=== PATIENT | female | born 1965 | race Caucasian/White ===

== ENCOUNTER 2018-06-07 04:53 | Inpatient (IN) ==
[2018-05-28 11:17] LABS: Basophils # (Auto) 0 K/mcL (0.0-0.3); Basophils % (Auto) 0.4 % (0.0-2.0); Eosinophils # (Auto) 0 K/mcL (0.0-0.7); Eosinophils % (Auto) 0.6 % (0.0-7.0); Granulocytes % (Auto) 57.9 % (38.0-78.0); Lymphocytes % (Auto) 34.5 % (15.5-49.0); Mean Cell Volume 87.9 fL (80.0-100.0); Mean Corpuscular HGB Conc 32.6 g/dL (31.0-36.0); Monocytes # (Auto) 0.4 K/mcL (0.1-0.9); Monocytes % (Auto) 6.6 % (1.0-12.0); Platelet Count 279 K/mcL (140-440); RBC 4.81 M/mcL (4.00-5.20); Red Cell Distribution Width 13.9 % (11.5-14.5)
[2018-05-28 11:20] LABS: Blood Urea Nitrogen 23 mg/dl (6-20)
[2018-05-28 12:15] LABS: Appearance,Urine CLEAR; Bilirubin,Urine NEG (NEG); Color,Urine YELLOW; Glucose,Urine (UA) NEGATIVE (NEG); Leukocyte Esterase,Urine NEG /uL (NEG); Protein,Urine NEG (NEG); Specific Gravity,Urine 1.006 (1.000-1.035); Urine Blood NEG mg/dL (<0.03); Urobilinogen,Urine NEG (NEG)
[2018-06-07] MEDS ORDERED: CELECOXIB 200 MG CAPSULE PO SCH (07:00)
[2018-06-07] MEDS ORDERED: 0.9 % SODIUM CHLORIDE 9 ML, KETOROLAC 30 MG, ROPIVACAINE HCL/PF 49.5 ML, EPINEPHrine 0.... IJ SCH (07:00)
[2018-06-07] MEDS ORDERED: PREGABALIN 75 MG CAPSULE PO SCH (07:00)
[2018-06-07] MEDS ORDERED: ceFAZolin 1 GM VIAL IV SCH (07:00)
[2018-06-07] MEDS ORDERED: ACETAMINOPHEN 500 MG TABLET PO SCH (07:00)
[2018-06-07] MEDS ORDERED: GENTAMICIN SULFATE 800 MG/20 ML VIAL IR ONE (07:20)
[2018-06-07] MEDS ORDERED: PROMETHAZINE 25 MG/ML VIAL IV PRN (09:28)
[2018-06-07] MEDS ORDERED: HYDROmorphone 2 MG/ML VIAL IV PRN (09:28)
[2018-06-07] MEDS ORDERED: ePHEDrine 50 MG/ML AMPUL IV PRN (09:28)
[2018-06-07] MEDS ORDERED: IPRATROPIUM/ALBUTEROL 3 ML AMPUL.NEB NEB PRN (09:28)
[2018-06-07] MEDS ORDERED: METHOCARBAMOL 1,000 MG/10 ML VIAL IV PRN (09:28)
[2018-06-07] MEDS ORDERED: diphenhydrAMINE 50 MG/ML VIAL IV PRN (09:28)
[2018-06-07] MEDS ORDERED: PROMETHAZINE 25 MG/ML VIAL IM PRN (09:28)
[2018-06-07] MEDS ORDERED: ONDANSETRON 4 MG/2 ML VIAL IV PRN ×2 (09:28→10:06)
[2018-06-07] MEDS ORDERED: METOPROLOL TARTRATE 5 MG/5 ML VIAL IV PRN (09:28)
[2018-06-07] MEDS ORDERED: ATROPINE SULFATE 0.4 MG/ML VIAL IV PRN (09:28)
[2018-06-07] MEDS ORDERED: MEPERIDINE 50 MG/ML INJECTION IM PRN (09:28)
[2018-06-07] MEDS ORDERED: NALOXONE HCL 0.4 MG/ML VIAL IV PRN (09:28)
[2018-06-07] MEDS ORDERED: FLUMAZENIL 0.1 MG/ML ML IV PRN (09:28)
[2018-06-07] MEDS ORDERED: LACTATED RINGERS 1,000 ML IV SCH (09:30)
[2018-06-07] MEDS ORDERED: POLYETHYLENE GLYCOL 3350 17 GM PACKET PO PRN (10:06)
[2018-06-07] MEDS ORDERED: BISACODYL 10 MG SUPP.RECT PR PRN (10:06)
[2018-06-07] MEDS ORDERED: BENZOCAINE/MENTHOL 1 LOZENGE PO PRN (10:06)
[2018-06-07] MEDS ORDERED: oxyCODONE/APAP 5/325MG TABLET PO PRN (10:06)
[2018-06-07] MEDS ORDERED: ACETAMINOPHEN 325 MG TABLET PO PRN (10:06)
[2018-06-07] MEDS ORDERED: TRANEXAMIC ACID 1,000 MG/10 ML VIAL IV SCH (10:06)
[2018-06-07] MEDS ORDERED: FLEETS ADULT ENEMA PR PRN (10:06)
[2018-06-07] MEDS ORDERED: MAGNESIUM HYDROXIDE 30 ML ORAL.SUSP PO PRN (10:06)
--- NOTE | 2018-06-07 10:06 | Brief Operative Note ---
Date of procedure: 06/07/18 Pre-op diagnosis: right knee loose tka Post-op diagnosis: same Procedure: right tka revision Grafts/Implants: Yes Anesthesia: GETA Complications: none Surgeon: Claude Cohen Oxygraph Operator: Satnam Can Estimated blood loss (cc): 100 Tourniquet Time (Minutes): 90 Specimens Removed/Pathology: none sent Condition: stable Disposition: PACU
[2018-06-07] MEDS ORDERED: 0.45 % SODIUM CHLORIDE 1,000 ML IV SCH (10:15)
[2018-06-07] MEDS: fentaNYL 100 MCG/2 ML VIAL IV PRN ×3 (10:37→11:16)
--- NOTE | 2018-06-07 11:23 | Operative Note ---
DATE OF OPERATION: 06/07/2018 PREOPERATIVE DIAGNOSIS: Right mechanically loosened total knee arthroplasty. POSTOPERATIVE DIAGNOSIS: Right mechanically loosened total knee arthroplasty. PROCEDURE: Right total knee arthroplasty. SURGEON: Claude Cohen M.D. LUBRICATING MACHINE TENDER: Satnam Can PA-C. ANESTHESIA: General LMA anesthesia. COMPLICATIONS: None. IMPLANTS PLACED: Turner components, size 4 tibial baseplate, size 4 femur with a +5 augment both on the tibia and the femur. DESCRIPTION OF PROCEDURE: The patient was brought to the operating room and put to sleep with general LMA anesthesia. Once asleep, the patient had the right leg sterilely prepped and draped in the usual sterile fashion. A midline incision was made and a midvastus approach performed. Once done, we then evaluated all the structures of the knee. We opened the joint and took out the synovium in the superior pouch. This was sent for high-powered field and microscopic evaluation. This showed less than 1 white blood cell per high power field. Once we knew this, we proceeded with a total knee. We removed the femoral component first after removing the poly liner. The femoral component removed fairly easily. There was a bony ridge that had grown up over it. The component was slightly lateralized and was removed without difficulty. It was discovered there was a membrane underneath the femoral component. About two-thirds of the surface was mechanically impregnated with the synovial lining. Medially, there was some bone attached on the posterior medial on the femoral condyle. There was no bone attached on the medial side. We then prepared the tibia. The tibial component was then tapped on superiorly, and it was easily removed. There was some cement attached on the anterior to anterolateral portion, but less than one-third of the surface. We then placed the intramedullary guide sudarshan on the tibia, made our cut at 5 mm below the cemented surface. We then removed the bony fragments and osteophytes. We lateralized the implant and positioned this and punched this into place. This was reamed up to the size 14 stem. The femoral component was then prepared. We reamed up to a size 16. A size 4 femur was used. We lateralized this 8 mm to align her anatomy perfectly. We reestablished her joint line using the epicondylar axis. Once done, we placed a +5 augment on the femur, and this was then trialed with a 16 poly to balance the knee. This had full range of motion and it worked very nicely. These components fit perfectly. We then cemented into place the tibial component, as well as the femoral component, and then a 16 poly with a posterior stabilized design was placed. The patient tolerated this well without difficulty. We kept the knee at 45 degrees until cement was dry. We closed the midvastus approach with #1 Stratafix x3 stitches and then the skin was closed with Stratafix and adhesive closure. The patient tolerated this well without complication. OMAR:rita Job ID: [id number] Doc ID: [id number] Claude Cohen MD
--- NOTE | 2018-06-07 11:36 | XRay Report ---
CLINICAL INFORMATION: Post-Op Total Knee COMPARISON: 05/14/2018 FINDINGS: Longstem total knee revision is anatomically aligned. No osseous abnormality. Soft tissue swelling gas seen as expected. IMPRESSION: Negative Interpreted and Authenticated by: Miguel Banks 06/07/18
[2018-06-07] MEDS: HYDROmorphone 2 MG/ML VIAL IV PRN ×3 (11:58→20:09)
[2018-06-07] MEDS ORDERED: KETOROLAC 15 MG/ML VIAL IV SCH (12:00)
[2018-06-07] MEDS: KETOROLAC 30 MG/ML VIAL IV SCH ×3 (12:05→23:06)
[2018-06-07] MEDS: 0.9 % SODIUM CHLORIDE 10 ML SYRINGE IV SCH ×2 (14:58→23:05)
[2018-06-07] MEDS ORDERED: PROPOFOL 200 MG/20 ML VIAL IV ONE (15:11)
[2018-06-07] MEDS ORDERED: DEXAMETHASONE 10 MG/ML VIAL IV ONE (15:11)
[2018-06-07] MEDS ORDERED: MIDAZOLAM 5 MG/5 ML VIAL IV ONE (15:11)
[2018-06-07] MEDS ORDERED: LIDOCAINE HCL/PF 100 MG/5 ML SYRINGE IV ONE (15:11)
[2018-06-07] MEDS ORDERED: ROPIVACAINE HCL/PF 20 ML VIAL IJ ONE (15:11)
[2018-06-07] MEDS ORDERED: GLYCOPYRROLATE 0.2 MG/ML VIAL IV ONE (15:11)
[2018-06-07] MEDS ORDERED: fentaNYL 250 MCG/5 ML VIAL IV ONE (15:11)
[2018-06-07] MEDS ORDERED: TRANEXAMIC ACID 1,000 MG/10 ML VIAL IV ONE (15:11)
[2018-06-07] MEDS ORDERED: ONDANSETRON 4 MG/2 ML VIAL IV ONE (15:11)
[2018-06-07] MEDS: ceFAZolin 1 GM VIAL IV SCH ×2 (15:27→23:05)
[2018-06-07] MEDS: HYDROmorphone 2 MG TABLET PO PRN ×2 (15:28→17:21)
[2018-06-07] MEDS: DOCUSATE SODIUM 100 MG CAPSULE PO SCH (20:08)
[2018-06-07] MEDS: ASPIRIN 325 MG ENTERIC COATED TABLET PO SCH (20:08)
[2018-06-07] MEDS: SENNOSIDES 1 TABLET PO SCH (20:08)
[2018-06-07] MEDS: TEMAZEPAM 15 MG CAPSULE PO PRN (20:08)
[2018-06-08] MEDS: HYDROmorphone 2 MG TABLET PO PRN ×6 (03:26→22:27)
[2018-06-08] MEDS: 0.9 % SODIUM CHLORIDE 10 ML SYRINGE IV SCH ×2 (04:57→21:19)
[2018-06-08] MEDS: KETOROLAC 30 MG/ML VIAL IV SCH ×3 (04:57→21:18)
[2018-06-08] MEDS: LEVOTHYROXINE 88 MCG TABLET PO SCH (07:23)
--- NOTE | 2018-06-08 07:35 | Orthopedic Progress Note ---
Subjective Patient information: Note initiated : 06/08/18 at 7:34 am Service Date, if different from initiated Date: [] Patient: Tara Mahajan 52 y/o F admitted on 06/07/18 for Right Total Knee Revision. Chief Complaint: [Pt is stable this morning on post operative day 1 without any significant concerns or complaints. Patients vital signs have remained stable. Patients dressing is dry and is grossly intact from a neurovascular and motor standpoint. Patients 10 point ROS is otherwise negative. ] Objective Vital signs: Vital Signs Temp Pulse Pulse Resp BP Pulse Ox 06/08/18 03:29 95 06/08/18 03:28 98.4 F 72 14 92/59 95 06/08/18 00:53 72 93/57 91 06/07/18 23:21 91 06/07/18 23:07 98.4 F 73 14 83/56 91 06/07/18 19:24 97.7 F 90 12 97/56 91 06/07/18 17:32 96 06/07/18 15:37 98.4 F 16 93/63 95 06/07/18 14:06 96 06/07/18 13:42 95/67 98 06/07/18 13:11 119/78 98 06/07/18 12:54 94 06/07/18 12:41 107/71 96 06/07/18 12:27 109/73 99 06/07/18 12:11 113/72 99 06/07/18 11:56 111/71 97 06/07/18 11:42 97.7 F 16 116/70 97 06/07/18 11:25 97.7 F 66 12 107/65 100 06/07/18 11:10 97.7 F 73 14 113/68 98 06/07/18 10:55 97.4 F 72 14 117/65 93 06/07/18 10:40 98.0 F 81 14 115/68 98 06/07/18 10:34 88 14 120/74 100 06/07/18 10:30 90 17 126/74 100 06/07/18 10:25 97.3 F 90 17 117/71 100 Intake and Output 06/07/18 06/08/18 06/08/18 21:59 05:59 13:59 Intake Total 2118 250 Output Total 1300 350 Balance 818 -100 Intake: IV 748 Sodium Chloride 0.45% 1,000 ml 748 @ 100 mls/hr IV .Q10H [facility] Rx#: [id number] Oral 1370 250 Output: Void Amount 1300 350 Other: Meal Dinner Percent of Meal Consumed 50% Feeding Ability Independent Urine Color Bright Yellow Weight 226 lb Intake & Output: Intake & Output 06/07/18 06/08/18 06/08/18 21:59 05:59 13:59 Intake Total 2118 250 Output Total 1300 350 Balance 818 -100 Weight 226 lb Intake: IV 748 Sodium Chloride 0.45% 1,000 ml 748 @ 100 mls/hr IV .Q10H [facility] Rx#: [id number] Oral 1370 250 Output: Void Amount 1300 350 Other: Meal Dinner Percent of Meal Consumed 50% Feeding Ability Independent Urine Color Bright Yellow Incision: Yes healing Dressing: Yes clean Weight bearing status: full Neurological exam IM: Yes motor sensory intact, Yes neurovascular intact Extremities exam IM: Yes Foot pink and warm, Yes neurovascular intact - Labs CBC & BMP: 06/08/18 05:26 05/28/18 08:34 Labs: 06/08/18 05/28/18 05:26 08:34 Hgb 13.8 Hct 31.9 L 42.3 Assessment and Plan (1) History of revision of total knee arthroplasty The patient has been educated regarding dressing care, Physical Therapy recommendations, home exercises, restrictions, and follow up appointments. The patient has had all necessary DME prescribed. The patient has remained relatively stable during their hospital course. Leave Dermabond patch intact until followup Status: Acute
--- NOTE | 2018-06-08 07:37 | Discharge Summary ---
Ortho Discharge - TKA - Patient Instructions Diet: Regular Diet Activity: activity as tolerated, weight bearing as tolerated Total Knee Protocol: For Total Knee: Start ROM MARI with stationary bike or rocking chair. Work on gaining full extension of knee. Posterior dislocation precautions provided. Hip abductor strengthening and gait training instructions provided. Apply Cryocuff as instructed. Dressing Care: May shower in 2 days, Aquacel Ag - leave on for 5 days - Problem Maintenance (1) History of revision of total knee arthroplasty Status: Acute - Follow Up Plan Follow Up Appointments: Satnam Can PA-C [Physician Hospice Admitting Clerk] - 06/22/18 8:10 am Disposition: Home, Self-Care Prognosis: Good Rehab Potential: Good I certify that the patient requires SNF services: No Overall status at discharge: patient is progressing back to baseline - Orders For Discharge Prescriptions: Aspirin [Ecotrin] 325 mg PO BID #60 tab.ec Docusate Sodium [Colace] 100 mg PO BID #60 capsule
[2018-06-08] MEDS: VITAMIN D3 1,000 UNIT TABLET PO SCH (08:58)
[2018-06-08] MEDS: ESTRADIOL 1 MG TABLET PO SCH (08:58)
[2018-06-08] MEDS: ASPIRIN 325 MG ENTERIC COATED TABLET PO SCH ×2 (08:59→20:17)
[2018-06-08] MEDS: MULTIVIT,THER IRON,CA,FA & MIN 1 TABLET PO SCH (08:59)
[2018-06-08] MEDS: DOCUSATE SODIUM 100 MG CAPSULE PO SCH ×2 (09:01→20:17)
--- NOTE | 2018-06-08 12:12 | Surgical Pathology Report ---
HISTOLOGY SPECIMEN MICROSCOPIC DIAGNOSIS SOFT TISSUE, RIGHT KNEE, SUPERIOR POUCH, EXCISION: -- SYNOVIUM AND FIBROTIC SOFT TISSUE WITH CHRONIC INFLAMMATION. -- NO SIGNIFICANT NEUTROPHILIC INFLAMMATION IDENTIFIED (LESS THAN NEUTROPHIL/hpf). (DMT:sln) INTRAOPERATIVE CONSULTATION FROZEN SECTION DIAGNOSIS ([facility] [place], [place]) FSA - SOFT TISSUE, RIGHT KNEE, SUPERIOR POUCH, EXCISION: -- LESS THAN ONE NEUTROPHIL/hpf. (DMT:sln) GROSS DESCRIPTION Received fresh for frozen section consultation labeled superior pouch right knee, is a 2.5 x 1.5 x 0.7 cm freeman-pink soft tissue fragment. The fragment is serially sectioned, entirely submitted for frozen section consultation and resubmitted as FSA. (DMT:sln) Electronically Signed by: Isreal Justin M.D.
[2018-06-08] MEDS: SENNOSIDES 1 TABLET PO SCH (20:17)
[2018-06-08] MEDS: TEMAZEPAM 15 MG CAPSULE PO PRN (21:18)
[2018-06-09] MEDS: KETOROLAC 30 MG/ML VIAL IV SCH ×2 (01:24→06:48)
[2018-06-09] MEDS: 0.9 % SODIUM CHLORIDE 10 ML SYRINGE IV SCH ×2 (01:24→06:49)
[2018-06-09] MEDS: HYDROmorphone 2 MG TABLET PO PRN (05:17)
[2018-06-09] MEDS: LEVOTHYROXINE 88 MCG TABLET PO SCH (06:49)
[2018-06-09] MEDS: VITAMIN D3 1,000 UNIT TABLET PO SCH (08:39)
[2018-06-09] MEDS: DOCUSATE SODIUM 100 MG CAPSULE PO SCH (08:39)
[2018-06-09] MEDS: ESTRADIOL 1 MG TABLET PO SCH (08:39)
[2018-06-09] MEDS: ASPIRIN 325 MG ENTERIC COATED TABLET PO SCH (08:40)
[2018-06-09] MEDS: MULTIVIT,THER IRON,CA,FA & MIN 1 TABLET PO SCH (08:40)
== END 2018-06-09 09:58 | disposition home or self-care (01) | DRG 468 ==
LOC: MEDSUR 04:53
PROVIDERS: ADMIT Orthopaedic Surgery; ATTEND Orthopaedic Surgery

== ENCOUNTER 2020-06-25 07:54 | Inpatient (IN) ==
[2020-06-18 18:29] LABS: Appearance,Urine CLEAR (Clear); Bilirubin,Urine Negative (Negative); Color,Urine YELLOW; Culture Indicated,Urine No; Glucose,Urine (UA) Negative (Negative); Ketones,Urine Negative (Negative); Leukocyte Esterase,Urine Negative /ug (Negative); Nitrate,Urine Negative (Negative); Protein,Urine Negative (Negative); Specific Gravity,Urine 1.026 (1.000-1.035); Urine Blood Negative (Negative)
[2020-06-18 20:18] LABS: Basophils # (Auto) 0.03 K/mcL (0.00-0.20); Basophils % (Auto) 0.5 % (0.0-2.0); Eosinophils # (Auto) 0.12 K/mcL (0.00-0.70); Hematocrit 37.9 % (36.0-48.0); Hemoglobin 11.9 g/dL (12.0-15.0); Lymphocytes # (Auto) 1.86 K/mcL (1.50-4.80); Lymphocytes % (Auto) 31.2 % (15.0-49.0); Mean Cell Volume 90.2 fL (80.0-100.0); Mean Corpuscular HGB Conc 31.4 g/dL (31.0-36.0); Mean Platelet Volume 10.4 fL (7.4-10.4); Monocytes % (Auto) 6.7 % (1.0-12.0); Neutrophils % (Auto) 59.6 % (38.0-78.0); Platelet Count 280 K/mcL (140-440); Red Cell Distribution Width 14.1 % (11.5-14.5)
[2020-06-18 21:00] LABS: Blood Urea Nitrogen 19 mg/dL (6-20); Calcium 9.2 mg/dL (8.6-10.4); Carbon Dioxide 27 mmol/L (22-30); Chloride 105 mmol/L (96-108); Glomerular Filtration Rate 98; Glucose 81 mg/dL (70-105)
[~2020-06-25 07:54] MED LIST: 0.9 % SODIUM CHLORIDE 9 ML, KETOROLAC 30 MG, ROPIVACAINE HCL/PF 49.5 ML, EPINEPHrine 0.... IJ SCH; ACETAMINOPHEN 500 MG TABLET PO SCH; CELECOXIB 200 MG CAPSULE PO SCH; PREGABALIN 75 MG CAPSULE PO SCH; ceFAZolin 2 GM in DEXTROSE 5% IN WATER 50 ML IV SCH
[2020-06-25] MEDS ORDERED: SCOPOLAMINE 1 PATCH PATCH TOPICAL PRN (08:00)
[2020-06-25] MEDS ORDERED: IPRATROPIUM/ALBUTEROL 3 ML AMPUL.NEB NEB PRN ×2 (08:00→12:02)
[2020-06-25] MEDS ORDERED: GENTAMICIN SULFATE 800 MG/20 ML VIAL IR ONE (09:57)
[2020-06-25] MEDS ORDERED: ePHEDrine 50 MG/ML AMPUL IV ONE (10:50)
[2020-06-25] MEDS ORDERED: LIDOCAINE HCL/PF 100 MG/5 ML SYRINGE IV ONE (10:50)
[2020-06-25] MEDS ORDERED: ROPIVACAINE HCL/PF 20 ML VIAL IJ ONE (10:50)
[2020-06-25] MEDS ORDERED: KETAMINE 100 MG/ML ML ONE (10:50)
[2020-06-25] MEDS ORDERED: fentaNYL 100 MCG/2 ML VIAL IV ONE (10:50)
[2020-06-25] MEDS ORDERED: MAGNESIUM SULFATE 4 GM/100 ML BAG IV ONE (10:50)
[2020-06-25] MEDS ORDERED: DEXAMETHASONE 10 MG/ML VIAL ONE (10:50)
[2020-06-25] MEDS ORDERED: PROPOFOL 200 MG/20 ML VIAL IV ONE (10:50)
[2020-06-25] MEDS ORDERED: ONDANSETRON 4 MG/2 ML VIAL ONE (10:50)
[2020-06-25] MEDS ORDERED: diphenhydrAMINE 50 MG/ML VIAL IV PRN (12:02)
[2020-06-25] MEDS ORDERED: NALOXONE HCL 0.4 MG/ML VIAL IV PRN (12:02)
[2020-06-25] MEDS ORDERED: LACTATED RINGERS 250 ML IV PRN (12:02)
[2020-06-25] MEDS ORDERED: PROMETHAZINE 25 MG/ML VIAL IV PRN (12:02)
[2020-06-25] MEDS ORDERED: HYDROmorphone 0.5 MG/0.5 ML SYRINGE IV PRN (12:02)
[2020-06-25] MEDS ORDERED: MEPERIDINE 25 MG/ML SYRINGE IV PRN (12:02)
[2020-06-25] MEDS ORDERED: ONDANSETRON 4 MG/2 ML VIAL IV PRN ×2 (12:02→12:19)
[2020-06-25] MEDS ORDERED: LACTATED RINGERS 1,000 ML IV SCH (12:15)
--- NOTE | 2020-06-25 12:18 | Brief Operative Note ---
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
[2020-06-25] MEDS ORDERED: ACETAMINOPHEN 325 MG TABLET PO PRN (12:19)
[2020-06-25] MEDS ORDERED: HYDROcodone/APAP 10/325MG TABLET PO PRN (12:19)
[2020-06-25] MEDS ORDERED: BENZOCAINE/MENTHOL 1 LOZENGE PO PRN (12:19)
[2020-06-25] MEDS ORDERED: TRANEXAMIC ACID 1,000 MG/10 ML VIAL IV ONE (12:19)
[2020-06-25] MEDS ORDERED: POLYETHYLENE GLYCOL 3350 17 GM PACKET PO PRN (12:19)
[2020-06-25] MEDS ORDERED: BISACODYL 10 MG SUPP.RECT PR PRN (12:19)
[2020-06-25] MEDS ORDERED: MAGNESIUM HYDROXIDE 30 ML ORAL.SUSP PO PRN (12:19)
[2020-06-25] MEDS ORDERED: FLEETS ADULT ENEMA PR PRN (12:19)
[2020-06-25] MEDS ORDERED: TEMAZEPAM 15 MG CAPSULE PO PRN (12:19)
--- NOTE | 2020-06-25 12:21 | Discharge Plan ---
Discharge Instructions - TKA Patient Instructions Total Knee Protocol: For Total Knee: Start ROM MARI with stationary bike or rocking chair. Work on gaining full extension of knee. Posterior dislocation precautions provided. Hip abductor strengthening and gait training instructions provided. Apply Cryocuff as instructed. Discharge Plan Patient/Caregiver Discharge Instructions Activity: ambulate only with your walker and as per physical therapy Diet: Regular Diet Prescriptions: New aspirin [Ecotrin] 325 mg tablet,delayed release (DR/EC) 325 mg PO BID Qty: 60 RF: 0 docusate sodium 100 mg capsule 100 mg PO BID Qty: 60 RF: 0 hydromorphone 4 mg tablet 4 mg PO .q4-6h MDD 8 PRN (Reason: pain) Qty: 75 RF: 0 No Action multivitamin 1 EACH tablet 1 tab PO DAILY RF: 0 cholecalciferol (vitamin D3) 1,000 UNIT tablet 2,000 unit PO DAILY RF: 0 levothyroxine 75 mcg Tablet 75 mcg PO QDAY RF: 0 biotin 1 mg Tablet 1 mg PO QDAY RF: 0 estradiol 1 mg tablet 2 mg PO DAILY RF: 0 Other Ambulatory Orders: CPM Discharge Order (ONCE) Location: None Selected Ordered By: Satnam Can Physical Therapy DC - TKA (Routine) Location: None Selected Ordered By: Satnam Can Toilet Riser Discharge Order (ONCE) Location: None Selected Ordered By: Satnam Can Walker (ONCE) Location: None Selected Ordered By: Satnam Can Follow Up Plan Follow up with: Satnam Can PA-C [Physician Radio Time Sales Supervisor] - Patient Disposition: Home, Self-Care Prognosis: Good Rehab Potential: Good I certify that the patient requires SNF services: No Overall status at discharge: patient is progressing back to baseline Discharge Orders: Discharge Order (Routine); Ordered 06/26/20 Ordered By: Satnam Can
[2020-06-25] MEDS: fentaNYL 100 MCG/2 ML VIAL IV PRN ×4 (12:32→13:04)
[2020-06-25] MEDS ORDERED: KETOROLAC 30 MG/ML VIAL ONE (12:43)
--- NOTE | 2020-06-25 13:01 | Operative Note ---
DATE OF OPERATION: 06/25/2020 PREOPERATIVE DIAGNOSIS: Right knee instability with patellofemoral pain. POSTOPERATIVE DIAGNOSES: Right knee instability with patellofemoral pain. PROCEDURE: Right total knee revision to a constrained knee with resurfacing the patella and changing the poly liner from a 16 to a 19. SURGEON: Claude Cohen M.D. HANDICAPPED TEACHER: Satnam Can PA-C. The PA's assistance was required for the safe and efficient completion of the entire case. This provider's expertise and technical skill were required throughout the case. The PA assisted with preoperative coordination, intraoperative retraction, wound closure, dressing and splint application, as well as postoperative documentation and care coordination. COMPLICATIONS: None. TOURNIQUET TIME: 45 minutes at 250 pounds of pressure. DESCRIPTION OF PROCEDURE: The patient was brought to the operating room and put to sleep with general LMA anesthesia. Preoperative antibiotics and tranexamic had been given. Once asleep, the patient had the right leg sterilely prepped and draped in the usual sterile fashion. Ioban was placed over the skin and a midline incision over the prior scar had been made. We dissected through the anterior medial capsule and then inspected the joint. There was some chronic hemosiderin staining of the joint. The knee had 3 mm of play with valgus stress. The patella seemed to track well. At this point we irrigated thoroughly, changing the poly liner from a size 16 to a 19 fully-constrained liner with resurfacing of the patella from a 36 patella. This was a 10 mm thick patella. We removed the old patella, which was slightly thinner. We irrigated thoroughly and then trialed all the components. This fit very nicely. We irrigated thoroughly. The patella did engage the poly at approximately 100 to 120 degrees. We cemented into place the new patella, 36 mm patella. We changed the liner from a 16 to a 19 and went to a constrained post. Once in, we irrigated thoroughly, deflated the tourniquet, and then closed the midvastus approach with #1 Stratafix. We performed a synovectomy of the knee as well as sending some of this tissue for permanent stains. Blood loss was about 20 mL. No complications. [facility]:rita Job ID: [id number] Doc ID: [id number] Claude Cohen MD
--- NOTE | 2020-06-25 13:06 | XRay Report ---
CLINICAL INFORMATION: Post-Op Total Knee COMPARISON: None. FINDINGS: Longstem knee prostheses is anatomically aligned. No osseous abnormality. Articular gas and soft tissue tissue swelling as expected. IMPRESSION: Wall stents in the prostheses in anatomic alignment Interpreted and Authenticated by: Miguel Banks 06/25/20
[2020-06-25] MEDS: 0.9 % SODIUM CHLORIDE 10 ML SYRINGE IV SCH ×2 (13:39→22:11)
[2020-06-25] MEDS: 0.45 % SODIUM CHLORIDE 1,000 ML IV SCH ×2 (13:49→22:25)
[2020-06-25] MEDS: HYDROmorphone 1 MG/ML SYRINGE IV PRN ×2 (15:09→20:34)
[2020-06-25] MEDS: KETOROLAC 15 MG/ML VIAL IV SCH ×2 (17:34→23:43)
[2020-06-25] MEDS: HYDROmorphone 2 MG TABLET PO PRN ×2 (17:35→23:42)
[2020-06-25] MEDS: ceFAZolin 1 GM VIAL IV SCH (18:26)
[2020-06-25] MEDS: ASPIRIN 325 MG ENTERIC COATED TABLET PO SCH (20:33)
[2020-06-25] MEDS: DOCUSATE SODIUM 100 MG CAPSULE PO SCH (20:33)
[2020-06-25] MEDS ORDERED: SENNOSIDES 1 TABLET PO SCH (21:00)
[2020-06-26] MEDS: ceFAZolin 1 GM VIAL IV SCH (02:53)
[2020-06-26] MEDS: HYDROmorphone 2 MG TABLET PO PRN ×2 (03:59→09:54)
[2020-06-26] MEDS: KETOROLAC 15 MG/ML VIAL IV SCH (05:18)
[2020-06-26] MEDS: 0.9 % SODIUM CHLORIDE 10 ML SYRINGE IV SCH (05:18)
[2020-06-26] MEDS ORDERED: LEVOTHYROXINE 75 MCG TABLET PO SCH (07:30)
--- NOTE | 2020-06-26 07:41 | Orthopedic Progress Note ---
SUBJECTIVE Subjective Patient information: Note initiated : 06/26/20 at 7:40 am Service Date, if different from initiated Date: [] Patient: Tara Mahajan 54 y/o F admitted on 06/25/20 for Right Total Knee Revision of Patella and Liner . Chief Complaint: [Pt is stable this morning on post operative day without any significant concerns or complaints. Patients vital signs have remained stable. Patients dressing is dry and is grossly intact from a neurovascular and motor standpoint. Patients 10 point ROS is otherwise negative. ] Constitutional Vitals: Vital Signs Temp Pulse Resp BP Pulse Ox 98.6 F 74 20 124/73 97 06/26/20 06:46 06/26/20 06:46 06/26/20 06:46 06/26/20 06:46 06/26/20 06:46 Period Temp Pulse Resp BP Sys/Magdaleno Pulse Ox Last 24 Hr 97 F-98.6 F 57-98 10-20 94-133/61-83 92-100 Intake and Output 06/25/20 06/26/20 06/26/20 21:59 05:59 13:59 Intake Total 480 1600 Output Total 2200 Balance -1720 1600 Weight 241 lb 3 oz Intake & Output: Intake & Output 06/25/20 06/26/20 06/26/20 21:59 05:59 13:59 Intake Total 480 1600 Output Total 2200 Balance -1720 1600 Weight 241 lb 3 oz Intake: IV 1000 Sodium Chloride 0.45% 1,000 ml 1000 @ 100 mls/hr IV .Q10H [facility] Rx#: [id number] Oral 480 600 Output: Void Amount 2200 Other: Meal Dinner Percent of Meal Consumed 100% Feeding Ability Independent Urine Appearance Clear Clear Urine Color Pale Pale Urine Odor Normal Normal # Voids 1 Extremities Exam Extremities exam: Present normal capillary refill, normal inspection, Foot pink and warm and neurovascular intact OBJ DATA Labs CBC & Chem 7: 06/26/20 05:35 06/18/20 16:43 Labs: Abnormal Lab Results 06/26/20 05:35 Hct 34.5 L Meds: Medications Acetaminophen (Tylenol) 650 mg PO Q6HP PRN; Protocol PRN Reason: Per Pain Protocol/Fever > 101 Aspirin (Ecotrin) 325 mg PO BID [facility] Last Admin: 06/25/20 20:33 Dose: 325 mg Documented by: Bisacodyl (Dulcolax) 10 mg [place] Q2-3DAYS PRN PRN Reason: Constipation Docusate Sodium (Colace) 100 mg PO BID [facility] Last Admin: 06/25/20 20:33 Dose: 100 mg Documented by: Estradiol (Estrace) 2 mg PO DAILY [facility] Hydromorphone HCl (Dilaudid) 4 mg PO Q4HP PRN; Protocol PRN Reason: Per Pain Protocol Last Admin: 06/26/20 03:59 Dose: 4 mg Documented by: Hydromorphone HCl (Dilaudid) 0 mg IV Q2HP PRN; Protocol PRN Reason: Per Pain Protocol Last Admin: 06/25/20 20:34 Dose: 1 mg Documented by: Sodium Chloride (Sodium Chloride 0.45%) 1,000 mls @ 100 mls/hr IV .Q10H [facility] Last Admin: 06/25/20 22:25 Dose: Not Given Documented by: Iron Carb/Multivit/Braxton/Folic Acid (Multivitamin W/Minerals) 1 tab PO DAILY [facility] Ketorolac Tromethamine (Toradol) 15 mg IV Q6 [facility] Stop: 06/27/20 12:01 Last Admin: 06/26/20 05:18 Dose: 15 mg Documented by: Levothyroxine Sodium (Synthroid) 75 mcg PO QAMAC [facility] Last Admin: 06/26/20 07:03 Dose: 75 mcg Documented by: Magnesium Hydroxide (Milk Of Magnesia) 30 ml PO BIDP PRN PRN Reason: Constipation Ondansetron HCl (Zofran) 4 mg IV Q4HP PRN PRN Reason: Nausea And Vomiting Polyethylene Glycol (Miralax) 17 gm PO DAILYP PRN PRN Reason: Constipation Senna (Senokot) 2 tab PO HS [facility] Last Admin: 06/25/20 20:33 Dose: 2 tab Documented by: Sodium Biphosphate/Sodium Phosphate (Fleets Adult) 1 dose [place] Q3-4DAYS PRN PRN Reason: Constipation Sodium Chloride (Saline Flush) 10 ml IV Q8 [facility] Last Admin: 06/26/20 05:18 Dose: 10 ml Documented by: Temazepam (Restoril) 15 mg PO HSP PRN PRN Reason: Insomnia Throat Lozenges (Cepacol) 1 lozenge PO PRN PRN PRN Reason: Sore Throat Vitamin D (Vitamin D3) 2,000 unit PO DAILY [facility] A/P Narrative A/P Narrative: The patient has been educated regarding dressing care, Physical Therapy recommendations, home exercises, restrictions, and follow up appointments. The patient has had all necessary DME prescribed. The patient has remained relatively stable during their hospital course. Pt has progressed quicker than expected and meets the criteria for early discharge per Physicial Therapy and our evaluation. Time Spent With Patient Time: Total time spent is greater than 50% in coordination of care (as documented) at patient's floor/unit and/or counseling patient: Total time spent with greater than 50% in coordination of care (as documented) at patient's floor/unit and/or counseling patient:: less than 15 minutes
[2020-06-26] MEDS: 0.45 % SODIUM CHLORIDE 1,000 ML IV SCH (07:44)
[2020-06-26] MEDS ORDERED: ESTRADIOL 1 MG TABLET PO SCH (09:00)
[2020-06-26] MEDS ORDERED: MULTIVIT,THER IRON,CA,FA & MIN 1 TABLET PO SCH (09:00)
[2020-06-26] MEDS ORDERED: BIOTIN 1 MG PO SCH (09:00)
[2020-06-26] MEDS ORDERED: VITAMIN D3 1,000 UNIT TABLET PO SCH (09:00)
[2020-06-26] MEDS: DOCUSATE SODIUM 100 MG CAPSULE PO SCH (09:11)
[2020-06-26] MEDS: ASPIRIN 325 MG ENTERIC COATED TABLET PO SCH (09:11)
--- NOTE | 2020-06-26 11:37 | Surgical Pathology Report ---
Histology Microscopic Diagnosis Specimen A- RIGHT KNEE SYNOVIAL TISSUE, EXCISION: --- SYNOVIAL TISSUE WITH MILD CHRONIC INFLAMMATION. --- NO SIGNIFICANT ACUTE INFLAMMATION; LESS THAN 1 NEUTROPHIL/hpf. (EBD:adj) Clinical History Instability of internal component; right knee pain. Gross Description Received in formalin designated synovial tissue, is a 3.1 x 1.6 x 0.4 cm fragment of pink-freeman tissue. Sectioned, totally submitted in one cassette. (KGW:adj) Electronically Signed Courtney Warner MD, FCAP Electronically Signed 06/26/2020 11:36
== END 2020-06-26 10:54 | disposition home or self-care (01) | DRG 465 ==
LOC: MEDSUR 07:54
PROVIDERS: ADMIT Orthopaedic Surgery; ATTEND Orthopaedic Surgery